=== PATIENT | male | born 1950 | race Caucasian/White ===

== ENCOUNTER 2022-07-09 17:13 | Inpatient (IN) | payer OTHER, MEDICARE ==
[~2022-07-09] VITALS: Ht 167.6 cm; Wt 51.4 kg
[2022-07-09 17:43] LABS: BASOPHILS # (AUTO) 0.1 X10'3 (0-0.2); BASOPHILS % (AUTO) 0.3 % (0-1); EOSINOPHILS % (AUTO) 0.2 % (0-6); HEMATOCRIT 40.8 % (42.0-52.0); HEMOGLOBIN 13.7 g/dl (14.0-17.9); LYMPHOCYTES # (AUTO) 0.7 X10'3 (1.1-4.8); MEAN CORPUSCULAR HEMOGLOBIN 30.6 PG (27.0-31.0); MEAN CORPUSCULAR HGB CONC 33.5 g/dL (33.0-36.5); MEAN CORPUSCULAR VOLUME 91.4 FL (78-98); MEAN PLATELET VOLUME 8.7 FL (7.4-10.4); MONOCYTES # (AUTO) 1.1 X10'3 (0-0.9); MONOCYTES % (AUTO) 6.3 % (2-12); NEUTROPHILS # (AUTO) 15.8 X10'3 (1.8-7.7); NEUTROPHILS % (AUTO) 89.2 % (42-75); PLATELET COUNT 341 X10'3 (140-440); RED BLOOD COUNT 4.46 X10'6 (4.70-6.10); RED CELL DISTRIBUTION WIDTH 15.3 % (11.5-14.5); WHITE BLOOD COUNT 17.7 X10'3 (4.5-11.0)
[2022-07-09 17:48] LABS: ALANINE AMINOTRANSFERASE 36 U/L (12-78); ALBUMIN 3.6 G/DL (3.4-5.0); ALBUMIN/GLOBULIN RATIO 0.9 (1.1-1.5); ALKALINE PHOSPHATASE 125 IU/L (46-116); ANION GAP 7 (8-16); ASPARTATE AMINO TRANSFERASE 38 U/L (10-37); BILIRUBIN,TOTAL 0.7 MG/DL (0.1-1.0); BLOOD UREA NITROGEN 15 MG/DL (7-18); BUN/CREATININE RATIO 12.2 (10.0-20.0); CHLORIDE 96 MMOL/L (99-107); CREATININE 1.23 MG/DL (0.60-1.10); GLUCOSE 138 MG/DL (70-104); POTASSIUM 3.8 MMOL/L (3.5-5.1); SODIUM 137 MMOL/L (135-145); TOTAL CARBON DIOXIDE 34.3 MMOL/L (24-32); TOTAL PROTEIN 7.6 G/DL (6.4-8.2); eGFR 58 ML/MIN
[2022-07-09 17:54] LABS: MAGNESIUM 1.9 MG/DL (1.5-2.4)
--- NOTE | 2022-07-09 20:13 | NUR ---
DR. GONZALEZ TO PT BEDSIDE AT THIS TIME FOR PT EVALUATION
[2022-07-09] MEDS ORDERED: methylPREDNISolone sod succ 125mg/2ml vial IV ONE (20:20)
[2022-07-09] MEDS ORDERED: ipratropium/albuterol 3ml nebule NEB ONE (20:20)
[2022-07-09] MEDS ORDERED: CefTRIAXone 2gm/D5W 50ml BAG 50 ML IV ONE (20:20)
[2022-07-09] MEDS ORDERED: normal saline 1000ML IV soln IVB ONE (20:20)
--- NOTE | 2022-07-09 20:32 | NUR ---
RT PAGED FOR ORDERED BREATHING TREATMENT
--- NOTE | 2022-07-09 20:38 | NUR ---
DR. JONES TO PT BEDSIDE AT THIS TIME
--- NOTE | 2022-07-09 20:50 | NUR ---
RT TO PT BEDSIDE AT THIS TIME FOR ORDERED BREATHING TX
[2022-07-09] MEDS ORDERED: magnesium 4gm in 100ml NS 100 ML IV PRN (21:00)
[2022-07-09] MEDS ORDERED: acetaminophen 325mg tablet PO PRN ×2 (21:00)
[2022-07-09] MEDS ORDERED: magnesium 2GM in 50ml NS 50 ML IV PRN (21:00)
[2022-07-09] MEDS ORDERED: ondansetron/PF 4mg/2ml inj IV PRN (21:00)
[2022-07-09] MEDS ORDERED: potassium Cl 40MEQ/1/2NS 520ml 520 ML IV PRN (21:00)
[2022-07-09] MEDS ORDERED: temazepam 15mg capsule PO PRN (21:00)
[2022-07-09] MEDS ORDERED: potassium Cl 20 mEq SR tablet PO PRN ×2 (21:00)
[2022-07-09] MEDS ORDERED: magnesium Cl slow-release 64mg tablet PO PRN (21:00)
--- NOTE | 2022-07-09 21:12 | NUR ---
GLASS INSTALLER TECHNICIAN TO PT BEDSIDE FOR LAB DRAW AT THIS TIME
[2022-07-09] MEDS ORDERED: FURO-149 PO (21:35)
[2022-07-09] MEDS ORDERED: ISOS30TA84 PO (21:35)
[2022-07-09] MEDS ORDERED: EZET10TA6 PO (21:35)
[2022-07-09] MEDS ORDERED: RANO500T6 PO (21:35)
[2022-07-09] MEDS ORDERED: APIX5TAB3 PO (21:35)
[2022-07-09] MEDS ORDERED: SPIR25TA PO (21:35)
[2022-07-09 21:36] LABS: D-DIMER 0.34 MG/L FEU (0-0.50)
[2022-07-09] MEDS ORDERED: METO100T7 PO (21:42)
[2022-07-09] MEDS ORDERED: FLUT1BLS10 IH (21:42)
[2022-07-09] MEDS ORDERED: ALBU18HF2 INH (21:42)
[2022-07-09] MEDS ORDERED: ALBU2.5V13 NEB (21:42)
[2022-07-10 00:19] VITALS: BP 106/50
[2022-07-10] MEDS: budesonide 0.5mg/2ml UD nebule IH SCH ×2 (00:38→06:53)
[2022-07-10] MEDS: albuterol 2.5 MG/3 ML nebule NEB SCH ×4 (00:38→11:46)
[2022-07-10] MEDS ORDERED: guaiFENesin/DM/phenylephrine syrup 120ml bottle PO PRN (01:55)
[2022-07-10] MEDS ORDERED: guaiFENesin/DM 10ml UD oral syrup PO PRN (02:08)
[2022-07-10 06:30] VITALS: BP 110/54
--- NOTE | 2022-07-10 06:50 | NUR ---
Problems reprioritized. Patient report given, questions answered & plan of care reviewed with Mckenna RN
[2022-07-10 07:23] LABS: BASOPHILS % (AUTO) 0.1 % (0-1); EOSINOPHILS % (AUTO) 0 % (0-6); HEMATOCRIT 37.3 % (42.0-52.0); HEMOGLOBIN 12.4 g/dl (14.0-17.9); LYMPHOCYTES # (AUTO) 0.3 X10'3 (1.1-4.8); LYMPHOCYTES % (AUTO) 2.4 % (21-51); MEAN CORPUSCULAR HEMOGLOBIN 30.3 PG (27.0-31.0); MEAN CORPUSCULAR HGB CONC 33.3 g/dL (33.0-36.5); MEAN CORPUSCULAR VOLUME 90.8 FL (78-98); MONOCYTES # (AUTO) 0.1 X10'3 (0-0.9); MONOCYTES % (AUTO) 0.9 % (2-12); NEUTROPHILS # (AUTO) 11.4 X10'3 (1.8-7.7); NEUTROPHILS % (AUTO) 96.6 % (42-75); PLATELET COUNT 277 X10'3 (140-440); RED BLOOD COUNT 4.11 X10'6 (4.70-6.10); RED CELL DISTRIBUTION WIDTH 15.6 % (11.5-14.5); WHITE BLOOD COUNT 11.8 X10'3 (4.5-11.0)
[2022-07-10 07:42] LABS: ALANINE AMINOTRANSFERASE 29 U/L (12-78); ALBUMIN/GLOBULIN RATIO 0.8 (1.1-1.5); ALKALINE PHOSPHATASE 108 IU/L (46-116); ANION GAP 9 (8-16); ASPARTATE AMINO TRANSFERASE 29 U/L (10-37); BILIRUBIN,TOTAL 0.5 MG/DL (0.1-1.0); BLOOD UREA NITROGEN 17 MG/DL (7-18); BUN/CREATININE RATIO 13.5 (10.0-20.0); CALCIUM 8.7 MG/DL (8.5-10.1); CHLORIDE 97 MMOL/L (99-107); CREATININE 1.26 MG/DL (0.60-1.10); GLUCOSE 193 MG/DL (70-104); POTASSIUM 3.5 MMOL/L (3.5-5.1); SODIUM 136 MMOL/L (135-145); TOTAL CARBON DIOXIDE 30.2 MMOL/L (24-32); TOTAL PROTEIN 6.6 G/DL (6.4-8.2); eGFR 56 ML/MIN
[2022-07-10] MEDS ORDERED: ranolazine 500mg SR tablet (Q12H) PO SCH (08:00)
[2022-07-10] MEDS ORDERED: furosemide 40mg tablet PO SCH (08:00)
[2022-07-10] MEDS ORDERED: albuterol 2.5 MG/3 ML nebule NEB PRN (08:00)
[2022-07-10] MEDS ORDERED: ezetimibe 10mg tablet PO SCH (08:00)
[2022-07-10] MEDS ORDERED: CefTRIAXone 2gm/D5W 50ml BAG 50 ML IV SCH (08:00)
[2022-07-10] MEDS ORDERED: spironolactone 25 MG tablet PO SCH (08:00)
[2022-07-10] MEDS ORDERED: heparin, porcine 5000 units/ml vial SQ SCH (08:00)
[2022-07-10] MEDS ORDERED: methylPREDNISolone sod succ 125mg/2ml vial IV SCH (08:00)
[2022-07-10] MEDS ORDERED: apixaban 5mg tablet PO SCH (08:00)
[2022-07-10] MEDS ORDERED: isosorbide mononitrate 30mg tab.SR.24H PO SCH (08:00)
[2022-07-10] MEDS ORDERED: metoprolol succinate 25mg (24-HOUR) SR. Tablet PO SCH (08:00)
--- NOTE | 2022-07-10 08:11 | NUR ---
Patient in room U 3014. I have received report from Marlena and had the opportunity to ask questions and assume patient care. Addendum: 07/10/22 at 0812 by Jeannette Valentine RN Amended: Links added.
[2022-07-10] MEDS ORDERED: pneumococcal 23-VAL P-sac vacc 25 mcg/0.5ml vial IMVAC ONE (10:00)
[2022-07-10] MEDS ORDERED: PRED20TA PO (10:35)
[2022-07-10 11:00] VITALS: BP 106/47
--- NOTE | 2022-07-10 15:00 | NUR ---
PT DISCHARGED TO HOME. VSS A/OX4 ALL DC INSTRUCTIONS EXPLAINED TO PATIENT AND PATIENTS FRIEND WITH BOTH VERBALIZING UNDERSTANDING RE POC. PT WILL MAKE AN APPT TO FU WITH HIS CARBONATOR AND HIS PRIMARY MEDICAL DOCTOR AT THE [facility] [place]. LEFT VIA WC ALL BELONGINGS WITH THE PATIENT INCLUDING HIS CELL PHONE AND COUNTY AGENT
== END 2022-07-10 12:38 | disposition home or self-care (01) | DRG 871 ==
LOC: ER 17:15 → ED HOLD 21:04 → EDBEDREQ 22:43 → PCU 3S 23:53
PROVIDERS: ADMIT Internal Medicine; ATTEND Family Medicine
DX: A41.9 Sepsis, unspecified organism (principal); I21.A1 Myocardial infarction type 2; J44.1 Chronic obstructive pulmonary disease with (acute) exacerbation; I50.22 Chronic systolic (congestive) heart failure; Z66 Do not resuscitate; F17.210 Nicotine dependence, cigarettes, uncomplicated; M54.9 Dorsalgia, unspecified; G89.29 Other chronic pain; N18.9 Chronic kidney disease, unspecified; Z95.0 Presence of cardiac pacemaker; Z99.81 Dependence on supplemental oxygen; Z88.5 Allergy status to narcotic agent; Z71.6 Tobacco abuse counseling; Z79.01 Long term (current) use of anticoagulants
CPT/HCPCS: 36415; 71045; 80053; 83605; 83735; 83880; 84484; 85025; 85379; 87040; 87081; 90732; 94640; 94760; 99285; G0378; J0696; J2930; J7030; J7040